=== PATIENT | male | born 1940 | race Caucasian/White ===

== ENCOUNTER 2016-10-27 12:48 | Emergency (ER) | payer MEDICARE ==
[~2016-10-27 12:48] MED LIST: CEFDINIR300 MG PO; COREG 12.5MG12.5 MG PO; ELIQUIS 5 MG TAB5 MG PO; HRT PO; HUMALOG100 UNIT/1 SC; LANTUS100 UNIT/1 SC; LIPITOR TAB 2020 MG PO; LISINOPRIL-HCT1 EAC1 PO; NEURONTIN 400400 MG PO
[2016-10-27 13:11] LABS: HEMOGLOBIN 12.5 gm/dl (14.0-17.5); RED BLOOD COUNT 4.22 M/UL (4.20-5.50); WHITE BLOOD COUNT 8.3 K/UL (4.5-11.0)
== END 2016-10-27 17:48 | disposition home or self-care (01) ==
LOC: ER1 12:48
PROVIDERS: Specialist/Technologist Athletic Trainer
DX: R53.83 Other fatigue (principal); I48.91 Unspecified atrial fibrillation; E78.00 Pure hypercholesterolemia, unspecified; E78.5 Hyperlipidemia, unspecified; I11.9 Hypertensive heart disease without heart failure; E11.65 Type 2 diabetes mellitus with hyperglycemia; Z79.4 Long term (current) use of insulin; Z95.1 Presence of aortocoronary bypass graft
CPT/HCPCS: 71010; 80053; 82550; 82553; 83874; 84484; 85025; 93005; 99285